=== PATIENT | female | born 1980 | race Caucasian/White ===

== ENCOUNTER 2017-05-21 08:13 | Emergency (ER) | payer BC, OTHER ==
[2017-05-21 08:55] LABS: #Basophils 0.1 thou/uL (0.0-0.2); #Eosinphils 0.3 thou/uL (0.0-0.7); #Lymphocytes 1.6 thou/uL (1.20-3.40); #Monocytes 0.6 thou/uL (0.11-0.59); #Neutrophils 4.3 thou/uL (1.40-6.50); %Basophils 0.8 % (0.0-1.0); %Eosinophils 4.6 % (0.0-10.0); %Lymphocytes 23.6 % (21.0-51.0); %Monocytes 8.8 % (0.0-10.0); Hematocrit 40.1 % (36.0-47.0); Mean Platelet Volume 7.2 fL (7.4-10.4); Red Blood Cell (RBC) Count 4.48 mill/uL (4.20-5.40); White Blood Cell (WBC) Count 6.9 thou/uL (4.8-10.8)
[2017-05-21 09:22] LABS: ALT (SGPT) 92 U/L (8-55); AST (SGOT) 44 U/L (5-34); Alkaline Phosphatase 75 U/L (40-150); Anion Gap 13 mmol/L (10-20); BUN (Urea Nitrogen) 9 mg/dL (7.0-18.7); Bilirubin, Total 1.1 mg/dL (0.2-1.2); Calc. Creatinine Clearance 0 mL/min (70-130); Calcium 9.4 mg/dL (7.8-10.44); Carbon Dioxide 25 mmol/L (22-29); Chloride 105 mmol/L (98-107); Estimated GFR-MDRD 83; Globulin 3.1 g/dL (2.4-3.5); Protein, Total 7.3 g/dL (6.0-8.3)
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
== END 2017-05-21 10:42 | disposition home or self-care (01) ==
LOC: ERS 08:13
DX: L91.8 Other hypertrophic disorders of the skin (principal); F84.0 Autistic disorder
CPT/HCPCS: 36415; 70450; 80053; 85025

== ENCOUNTER 2020-05-03 16:34 | Emergency (ER) | payer BC, OTHER ==
[2020-05-03] MEDS ORDERED: Ketorolac Tromethamine 30 MG/ML VIAL ONE (17:44)
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
== END 2020-05-03 21:13 | disposition home or self-care (01) ==
LOC: ERS 16:34
DX: M54.41 Lumbago with sciatica, right side (principal); E03.9 Hypothyroidism, unspecified; F41.9 Anxiety disorder, unspecified; F32.9 Major depressive disorder, single episode, unspecified; V49.60XA Unspecified car occupant injured in collision with unspecified motor vehicles in traffic accident, initial encounter
CPT/HCPCS: 71045; 72040; 72100; 72170; 96372; J1885

== ENCOUNTER 2022-10-23 15:03 | Outpatient (CLI) | payer BC ==
[2022-10-23 16:18] LABS: Hemoglobin 10.9 g/dL (12.0-15.5); Mean Corpuscular HGB CONC 31.7 g/dL (32.0-36.0); Mean Corpuscular Volume 78.9 fl (81.6-98.3); Mean Platelet Volume 10.3 fl (7.4-10.4); Platelet Count 334 10x3/uL (150-450); Red Blood Cell (RBC) Count 4.36 10x6/uL (3.90-5.03); White Blood Cell (WBC) Count 8.2 10x3/uL (3.5-10.5)
[2022-10-23 16:28] LABS: PTT 29.6 sec (22.0-33.0); Prothrombin Time 10.4 sec (9.5-12.1)
== END 2022-10-23 15:04 | disposition home or self-care (01) ==
LOC: LABBT 15:03
PROVIDERS: ATTEND Neurological Surgery
DX: Z01.812 Encounter for preprocedural laboratory examination (principal); M48.07 Spinal stenosis, lumbosacral region
CPT/HCPCS: 85027; 85610; 85730

== ENCOUNTER 2022-10-27 05:46 | Observation (INO) | payer BC ==
[2022-10-27] MEDS ORDERED: Midazolam HCl 5 mg/5 ml Vial ONE (05:52)
[2022-10-27] MEDS ORDERED: Fentanyl 250 MCG/5 ML VIAL ONE (05:52)
[2022-10-27] MEDS ORDERED: Dexmedetomidine 200 MCG/2 ML VIAL ONE (05:53)
[2022-10-27] MEDS ORDERED: Bupivacaine HCl 0.5%/Epinephrine 1:200,000/PF 30 ml Vial ONE (06:11)
[2022-10-27] MEDS ORDERED: Vancomycin 1 GM VIAL ONE ×2 (06:11→12:00)
[2022-10-27] MEDS ORDERED: Thrombin 5000 UNITS/5 ML VIAL ONE (06:11)
[2022-10-27] MEDS ORDERED: Neomycin-Polymyxin 1 ML AMP ONE (06:11)
[2022-10-27] MEDS ORDERED: CEFAZOLIN 2 GM VIAL ONE (06:18)
[2022-10-27] MEDS ORDERED: Sodium Chloride 0.9% 100 ML ONE (06:18)
[2022-10-27] MEDS ORDERED: PROPOFOL 200 MG/20 ML VIAL ONE (07:06)
[2022-10-27] MEDS ORDERED: Rocuronium Bromide 10 MG/ML (10ML VIAL) ONE (07:06)
[2022-10-27] MEDS ORDERED: PHENYLEPHRINE-NS 100 MCG/ML 10 ML SYRINGE ONE (07:06)
[2022-10-27] MEDS ORDERED: Lidocaine 1% PF 5 ML VIAL ONE (07:06)
[2022-10-27] MEDS ORDERED: Vecuronium 10 MG VIAL ONE (07:06)
[2022-10-27] MEDS ORDERED: Dexamethasone 20 MG/5 ML VIAL ONE (07:06)
[2022-10-27] MEDS ORDERED: ePHEDrine 50 MG/ML VIAL ONE (07:06)
[2022-10-27] MEDS ORDERED: Metoclopramide HCl 10 MG/2 ML VIAL ONE (07:06)
[2022-10-27] MEDS ORDERED: Ketorolac Tromethamine 30 MG/ML VIAL ONE (07:06)
[2022-10-27] MEDS ORDERED: Ondansetron PF 4 MG/2 ML Vial ONE (07:06)
[2022-10-27 07:16] LABS: SARS-CoV-2 NAA Rapid Test Not Detected (NotDetected)
[2022-10-27] MEDS ORDERED: ePHEDrine Sulfate 50 MG/10 ML VIAL ONE (11:06)
[2022-10-27] MEDS ORDERED: SUGAMMADEX SODIUM 200 MG/2 ML VIAL ONE (12:03)
[2022-10-27] MEDS ORDERED: Fentanyl 100 MCG/2 ML VIAL ONE ×2 (13:01→14:49)
[2022-10-27] MEDS ORDERED: Cyclobenzaprine 10 MG TAB PO PRN (13:10)
[2022-10-27] MEDS ORDERED: Acetaminophen/Codeine 30-300mg Tablet PO PRN (13:10)
[2022-10-27] MEDS ORDERED: Promethazine 25 MG TAB PO PRN (13:10)
[2022-10-27] MEDS ORDERED: Morphine 2 MG/ML VIAL SLOW IVP PRN (13:10)
[2022-10-27] MEDS ORDERED: HYDROcodone/Acetaminophen 7.5/325 mg Tablet PO PRN (13:10)
[2022-10-27] MEDS ORDERED: Milk Of Magnesia 30 ML UDCUP PO PRN (13:10)
[2022-10-27] MEDS ORDERED: Ondansetron PF 4 MG/2 ML Vial IVP PRN (13:10)
[2022-10-27] MEDS ORDERED: Mag-Al 1200 mg/1200 mg/30 ML UDCUP PO PRN (13:10)
[2022-10-27] MEDS ORDERED: Acetaminophen 325 MG TAB PO PRN (13:10)
[2022-10-27] MEDS ORDERED: Bisacodyl 10 MG SUPP PR PRN (13:10)
[2022-10-27] MEDS ORDERED: HYDROmorphone 0.5 MG/0.5 ML SYRINGE ONE (13:30)
[2022-10-27] MEDS ORDERED: Tobramycin 0.3% Ophth Oint 3.5 GM TUBE L EYE SCH (14:15)
[2022-10-27] MEDS ORDERED: Promethazine HCl 25 MG/ML VIAL ONE (15:03)
[2022-10-27] MEDS: Sodium Chloride 0.9% 1,000 ML IV SCH (20:47)
[2022-10-27] MEDS: CEFAZOLIN 2 GM in Sodium Chloride 0.9% 100 ML IVPB SCH (20:47)
[2022-10-27] MEDS: HYDROcodone/Acetaminophen 10/325 mg Tablet PO PRN (21:07)
[2022-10-27 22:11] VITALS: BMI 28.8
[2022-10-28] MEDS: HYDROcodone/Acetaminophen 10/325 mg Tablet PO PRN ×3 (03:02→14:00)
[2022-10-28] MEDS: Sodium Chloride 0.9% 1,000 ML IV SCH (04:50)
[2022-10-28] MEDS: CEFAZOLIN 2 GM in Sodium Chloride 0.9% 100 ML IVPB SCH (04:58)
[2022-10-28] MEDS ORDERED: Levothyroxine Sodium 112 MCG TAB PO SCH (06:00)
[2022-10-28 07:20] LABS: #Lymphocytes 1.5 thou/uL (1.20-3.40); #Monocytes 1.3 thou/uL (0.11-0.59); #Neutrophils 10.5 thou/uL (1.40-6.50); %Basophils 0.2 % (0.0-1.0); %Eosinophils 0.3 % (0.0-10.0); %Lymphocytes 11.3 % (21.0-51.0); %Monocytes 9.4 % (0.0-10.0); %Neutrophils 78.9 % (42.0-75.0); Hemoglobin 9.6 g/dL (12.0-16.0); Mean Corpuscular HGB CONC 31.7 g/dL (32.0-36.0); Mean Corpuscular Hemoglobin 25.8 pg (27.0-31.0); Mean Corpuscular Volume 81.4 fl (78.0-98.0); Mean Platelet Volume 7.7 fL (7.4-10.4); Platelet Count 282 10x3/uL (130-400); RBC Distribution Width 13.2 % (11.5-14.5); Red Blood Cell (RBC) Count 3.71 mill/uL (4.20-5.40); White Blood Cell (WBC) Count 13.3 10x3/uL (4.8-10.8)
[2022-10-28] MEDS: Polyvinyl Alcohol 1.4%/Povidone 0.6% Opth Drops EA EYE SCH ×2 (09:30→14:04)
[2022-10-28 16:15] VITALS: BP 93/60; TEMP 99.8
[2022-10-30] MEDS ORDERED: FLU VACC QS2022-23(6MOS UP)/PF 60 MCG/0.5 ML SYRINGE IM ONE (09:00)
== END 2022-10-28 17:08 | disposition home or self-care (01) ==
LOC: SDC 05:46 → SURG A 13:10
PROVIDERS: ADMIT Neurological Surgery; ATTEND Neurological Surgery
PROC: 0SG30AJ Fusion of Lumbosacral Joint with Interbody Fusion Device, Posterior Approach, Anterior Column, Open Approach (ICD-10-PCS; principal; 2022-10-27)
DX: M43.17 Spondylolisthesis, lumbosacral region (principal); M48.07 Spinal stenosis, lumbosacral region; M47.27 Other spondylosis with radiculopathy, lumbosacral region; E07.9 Disorder of thyroid, unspecified; I49.5 Sick sinus syndrome; Z79.890 Hormone replacement therapy; Z79.899 Other long term (current) drug therapy; Z88.8 Allergy status to other drugs, medicaments and biological substances; Z95.0 Presence of cardiac pacemaker; Z98.84 Bariatric surgery status; Z20.822 Contact with and (suspected) exposure to COVID-19
CPT/HCPCS: 36415; 85025; 96365; 96376; C1713; C1768; C1776; C1889; G0378; J1100; J1170; J1885; J2250; J2405; J2550; J2704; J2765; J3010; J3370; J3490; J7050; U0002

== ENCOUNTER 2022-12-26 09:07 | Outpatient (CLI) | payer BC | END 2022-12-26 09:08 | disposition home or self-care (01) | LOC: TBSIIMAG 09:07 | PROVIDERS: ATTEND Physician Assistant Surgical | DX: M54.16 Radiculopathy, lumbar region (principal); Z98.890 Other specified postprocedural states | CPT/HCPCS: 72100 ==